=== PATIENT | female | born 1960 | race Caucasian/White ===

== ENCOUNTER → 2017-06-26 15:07 | Outpatient (CLI) | payer MEDICARE, SELFPAY | PROVIDERS: Visit Provider Nurse Practitioner Family | DX: R05 Cough (principal) | CPT/HCPCS: 87015; 87070; 87077; 87086; 87116; 87186; 87205; 87206; 87385 ==

== ENCOUNTER → 2017-11-24 11:50 | Outpatient (CLI) | payer MEDICARE, SELFPAY ==
--- NOTE | 2017-11-24 11:52 | CT_ITS ---
STUDY: LOW DOSE CT LUNG CANCER SCREENING REASON FOR EXAM: Female, 57 years old. COPD, LUNG SCREEN, SMOKED X 40 YRS-10 PER DAY RADIATION DOSAGE (If Supplied By Facility): CTDIvol = ( 3.02 ) mGy, DLP = ( 101.18 ) mGycm TECHNIQUE: No contrast was administered. Low dose technique was utilized (average mAS-38 and kVp 120). 1.25 mm axial source images with a slice interval of 1.25-mm were reconstructed in lung windows. 2.5 mm axial source images with a slice interval of 2.5-mm were reconstructed in lung windows. 5.0 mm axial source images with a slice interval of 5.0-mm were reconstructed in soft tissue windows. Nodule measured using lung windows on PACS and/or independent workstation with automated measurement of minimum and maximum diameter. Nodule measurement reported as average diameter rounded to the nearest whole number. Growth is defined as an increase ins size of greater than 1.5 mm. COMPARISON: None. NODULES: There is scarring distraction bronchiectasis in the left lung upper lobe. Mild subpleural emphysematous changes are noted in the left lower lobe and in the lung apices. There is no demonstrated pleural abnormality. Normal heart and pericardium. Normal mediastinum. Normal hilar regions. Normal unenhanced pulmonary arteries. Normal aorta arch and descending thoracic aorta. Normal osseous structures. There is no demonstrated abnormality of the visualized upper abdomen. CT/Low Dose CT Lung Screening IMPRESSION: Lung-RADS category 2. Benign findings. Recommendation: Routine screening CT scan in one year. IMPORTANT NOTES FOR USE: ACR Lung-RADS Version 1.0 Assessment Categories Release Date: June 03, 2013 Category: Coded 0-4 bases on nodule(s) with highest degree of suspicion. Negative screen is defined as categories 1 and 2; a positive screen is defined as categories 3 and 4. Category 3 and 4A nodules that are unchanged on interval CT should be coded as category 2, and individuals returned to screening in 12 months. Category 4X: Category 3 or 4 nodules with additional imaging findings that increase the suspicion of lung cancer, such as spiculation, GGN that doubles in size in 1 year, enlarged lymph notes, etc. Category Modifiers: S (significant finding unrelated to lung cancer) and C (prior history of treated lung cancer) may be added to the 0-4 Lung-RADS Electronically Signed: Aracelis Rivers MD at 7:55 EDT Tel , Service support ,
[2017-11-24 12:18] VITALS: PULSE 75; PULSE 77; PULSE 89; PULSE 90; PULSE 91; PULSE 97; O2SAT 94; O2SAT 95; O2SAT 96; O2SAT 97; O2SAT 98
--- NOTE | 2017-11-25 06:04 | PCM.PSN.6M ---
PSN 6 Minute Walk Test - 6 Minute Walk Test 6 Minute Walk Test: 6 Minute Walk Test PSN:6-Minute Walk Test Start: 11/24/17 12:18 Freq: Status: Active Protocol: [id number] Document 11/24/17 12:18 LOAN (Rec: 11/24/17 12:21 LOAN [id number]) 6 Minute Walk Test Date Performed 11/24/17 Time Performed 12:00 Height 5 ft 5 in Weight: 88.451 kg Weight in Pounds 195.[address]: Baudilio Rivera Assistive device used: None Pre-test Oxygen Delivery Method Room Air Pulse Ox (%) 98 Pulse Rate (60-100 beats/min) 75 Dyspnea Anderson Scale (0-10) 0 Exertion Anderson Scale (6-20) 6 1st minute Oxygen Delivery Method Room Air Pulse Ox (%) 97 Pulse Rate (60-100 beats/min) 90 2nd minute Oxygen Delivery Method Room Air Pulse Ox (%) 95 Pulse Rate (60-100 beats/min) 89 3rd minute Oxygen Delivery Method Room Air Pulse Ox (%) 95 Pulse Rate (60-100 beats/min) 90 4th minute Oxygen Delivery Method Room Air Pulse Ox (%) 96 Pulse Rate (60-100 beats/min) 97 5th minute Oxygen Delivery Method Room Air Pulse Ox (%) 94 Pulse Rate (60-100 beats/min) 90 6th minute Oxygen Delivery Method Room Air Pulse Ox (%) 94 Pulse Rate (60-100 beats/min) 91 Dyspnea Anderson Scale (0-10) 0.5 Exertion Anderson Scale (6-20) 11 Post-test Oxygen Delivery Method Room Air Pulse Ox (%) 98 Pulse Rate (60-100 beats/min) 77 Full Laps Walked 18 Partial Lap, Number of Tiles Walked 0 Total Distance Walked (ft) 1062 - Interpretation Interpretation: The patient was able to ambulate 1062 feet over the course of 6 minutes on room air with no assistive devices or breaks. There was no significant desaturation or tachycardia noted. These findings are consistent with a normal exercise oximetry. - Recommendations Recommendations: No supplemental oxygen is indicated at this time.
== END ==
PROVIDERS: Referring Provider Internal Medicine Critical Care Medicine; Visit Provider Internal Medicine Critical Care Medicine
DX: Z12.2 Encounter for screening for malignant neoplasm of respiratory organs (principal); J44.9 Chronic obstructive pulmonary disease, unspecified; Z87.891 Personal history of nicotine dependence
CPT/HCPCS: 94618; G0297

== ENCOUNTER → 2017-11-30 12:54 | Outpatient (CLI) | payer MEDICARE, SELFPAY ==
--- NOTE | 2017-12-01 12:23 | PFT ---
INTRODUCTION: The patient is a 57-year-old female that presents for pulmonary function testing secondary to a diagnosis of COPD. Respiratory therapy reports good patient effort. Bronchodilators were used during testing. INTERPRETATION: Forced expiration spirometry demonstrates the presence of a mild large airways obstructive ventilatory defect. There was no significant response to aerosolized bronchodilators. Spirograms are of fair quality and do not plateau indicating slow emptying of the lungs. Body plethysmography was performed and reveals lung volumes to be within normal limits. Diffusing capacity by single breath CO is mildly reduced at 67% of predicted. IMPRESSION: These pulmonary function studies demonstrate the presence of a mild large airways obstructive ventilatory defect with a symmetric reduction in diffusing capacity.
== END ==
PROVIDERS: Referring Provider Internal Medicine Critical Care Medicine; Visit Provider Internal Medicine Critical Care Medicine
DX: J44.9 Chronic obstructive pulmonary disease, unspecified (principal); F17.210 Nicotine dependence, cigarettes, uncomplicated
CPT/HCPCS: 94060; 94726; 94729

== ENCOUNTER → 2018-05-31 12:55 | Outpatient (CLI) | payer MEDICARE, SELFPAY ==
[2017-12-08 14:12] VITALS: BMI 32.4
--- NOTE | 2018-06-01 10:17 | PFT ---
INTRODUCTION: The patient is a 57-year-old female that presents for pulmonary function studies secondary to a diagnosis of COPD. Respiratory therapy reports good patient effort. Bronchodilators were used during testing. INTERPRETATION: Forced expiration spirometry demonstrates no evidence of a large airways obstructive ventilatory defect. There was no significant response to aerosolized bronchodilators. Spirograms are of suboptimal quality and terminate prior to 6 seconds, likely underestimating FVC. Body plethysmography was performed and reveals lung volumes to be within normal limits. Diffusing capacity by single breath CO is also within normal limits. IMPRESSION: Essentially normal pulmonary function studies.
== END ==
PROVIDERS: Referring Provider Nurse Practitioner Acute Care; Visit Provider Nurse Practitioner Acute Care
DX: J44.9 Chronic obstructive pulmonary disease, unspecified (principal)
CPT/HCPCS: 94060; 94726; 94729

== ENCOUNTER 2018-12-25 10:53 | Emergency (ER) | payer MEDICARE, SELFPAY ==
[2018-06-07 13:57] VITALS: BMI 31.1
[2018-12-25 10:55] VITALS: BP 100/55; PULSE 124; RESP 18; TEMP 36.8; O2SAT 94; BMI 28.3
--- NOTE | 2018-12-25 11:09 | RAD_ITS ---
STUDY: X-RAY CHEST REASON FOR EXAM: Female, 58 years old. Cough. COPD. TECHNIQUE: PA and lateral views of the chest. COMPARISON: None. FINDINGS: Minimal increased linear markings in the left upper lobe. This may represent mild scarring. Scattered calcified granulomas. There is no demonstrated pleural abnormality. Normal size heart. Normal mediastinum and mariya. Normal visualized pulmonary arteries. Normal visualized aortic arch and descending thoracic aorta. Normal visualized thoracic spine. Normal visualized ribs, clavicles, and shoulders. There is no demonstrated abnormality of the visualized soft tissue structures of the upper abdomen. RAD/Chest PA and Lateral IMPRESSION: No acute abnormality is seen. Electronically Signed: Jonathan Musa, at 12:31 EST , Service support ,
--- NOTE | 2018-12-25 11:10 | ED.VIS.GEN ---
History of Present Illness Chief Complaint: General Illness Informant: Patient Onset: Month(s) - 1 Narrative: Patient here with multiple complaints. He reported sinus congestion started a month ago, states when anterior chest for the past 2 weeks. Intermittent productive sputum. Over the last 3 days reports fever T-max of 101 taken orally. Took Advil prior to arrival. History of COPD with tobacco history. Reports wheezing. No chest pains. No significant short of breath. Patient will have posttussive headaches. States urine is darker over 3 days decreased oral intake. Mild cramping of the abdomen. No vomiting or diarrhea. No dysuria. Called PCP office and was referred to the ED. Reports had pneumonia 2 years ago. Denies history of diabetes. Prior similar symptoms: Yes Past Medical History - Allergies and Home Meds Allergies/Adverse Reactions: Allergies aspirin [From [employer] Aspirin] Allergy (Verified 12/25/18 10:55) Unknown codeine Allergy (Verified 12/25/18 10:55) Nausea/Vom/Diarrhea shellfish derived Allergy (Verified 12/25/18 10:55) Unknown talc Allergy (Verified 12/25/18 10:55) Itching Primary Care Physician: [facility] Winnie Valerio [Primary Care Provider] - Review of Systems General: Reports: Fever. Denies: Chills, Sweats Eyes: Denies: Visual changes - bilaterally, Diplopia ENT: Denies: Rhinorrhea, Sore throat Cardiovascular: Denies: Chest pain, Palpitations Respiratory: Reports: Cough, Sputum. Denies: Dyspnea, Dyspnea on exertion Gastrointestinal: Denies: Abdominal pain, Nausea, Vomiting, Diarrhea, Melena, Hematochezia Genitourinary: Denies: Dysuria, Hematuria, Frequency Musculoskeletal: Denies: Back pain, Extremity Pain Skin: Denies: Rash, Wounds Neurological: Denies: Headache, Weakness, Numbness Physical Exam Vital Signs/Narrative: Vital Signs Temp Pulse Resp BP Pulse Ox 12/25/18 10:55 98.2 F 124 H 18 100/55 L 94 Inital Vital Signs reviewed: Yes General: Well nourished, Well developed, No Acute Distress Head: Normocephalic, Atraumatic Eyes: Perrl, EOMI ENT: No rhinorrhea, - - Mild dry mucosal membranes. Neck: Supple, Nontender Cardiovascular: Regular rate, Regular rhythm, No murmurs, - - Heart rate 96 on my evaluation. Respiratory: No distress, Chest nontender, - - Mild expiratory wheezing bilateral bases Abdomen: Soft, Nontender, Nondistended, Normal bowel sounds, - - Negative McBurney's tenderness.. Negative for: Ortiz's sign Back: Nontender, Normal Inspection. Negative for: CVA tenderness Extremities: Nontender, No edema Skin: Normal color, No rash Neurological: Alert, Oriented x3, Cranial nerves II-XII grossly intact, Normal Strength, Normal Sensation Psychological: Normal affect, Normal Mood Diagnostic/Tx/Re-eval Clinical Impression(s) from Imaging Studies Chest X-Ray 12/25/18 11:09 IMPRESSION: No acute abnormality is seen. Electronically Signed: Jonathan Lencho, at 12:31 EST , Service support , Abnormal Lab Results 12/25/18 12/25/18 12/25/18 11:28 11:30 11:30 WBC 13.9 H RBC 4.64 Hgb 14.8 Hct 44.6 MCV 96.1 MCH 31.9 MCHC 33.2 RDW Std Deviation 45.8 H RDW Coeff of Ramila 12.8 Plt Count 158 MPV 11.7 Immature Gran % (Auto) 0.400 Neut % (Auto) 82.3 H Lymph % (Auto) 6.8 L [place] % (Auto) 9.4 Eos % (Auto) 0.8 Baso % (Auto) 0.3 Absolute Neuts (auto) 11.5 H Absolute Lymphs (auto) 0.94 Nucleated RBC % 0 Sodium 136 Potassium 3.8 Chloride 104 Carbon Dioxide 25.0 Anion Gap 7 BUN 14 Creatinine 1.11 H Estim Creat Clear Calc 50.92 Est GFR (MDRD) Af Amer 65 Est GFR (MDRD) Non-Af 54 L BUN/Creatinine Ratio 12.6 Glucose 140 H Calcium 9.0 Urine Color Amelia Urine Clarity Sl. Cloudy Urine pH 5.0 Ur Specific [place] 1.025 Urine Protein 100 H Urine Glucose (UA) Normal Urine Ketones 15 H Urine Occult Blood 250 H Urine Nitrite Positive H Urine Bilirubin 1 H Urine Urobilinogen 1 H Ur Leukocyte Esterase 500 H Urine RBC 25-50 SEEN Urine WBC 25-50 SEEN Ur Squamous Epith Cells 0-5 SEEN Urine Bacteria 2+ Urine Mucus 1+ - Medical Decision Making Patient nontoxic, heart rate was regular and normal on my exam. She had wheezing that improved with aerosols. She started on steroids. History of COPD chest x-ray negative labs noted white count 13.9, her urine was positive for infection. Renal function normal. Patient ambulated oxygen dropped to 91 however not lower and improved with rest. She will be treated with her COPD exacerbation and her UTI with Augmentin. Steroids for additional 4 more days, refill of her inhaler. Signs and symptoms discussed return otherwise follow-up as an outpatient. All questions were answered. ED Disposition - Plan for ED Patient: Disposition: Home or Assisted Living Diagnosis: COPD exacerbation, UTI (urinary tract infection) Instructions: Treatments for COPD, Understanding Urinary Tract Infections (UTIs) Prescriptions: Amox/Clavulanate Tablet [Augmentin Tablet] 875 mg PO Q12H #20 tablet Prednisone [Deltasone] 60 mg PO DAILY #12 tablet Albuterol Inhaler [Ventolin Hfa] 1 - 2 puff INHALATION Q4H PRN PRN #1 inhaler PRN Reason: Wheezing Referrals: [facility]Winnie Heard [Primary Care Provider] - 3-5 Days if not improving
[2018-12-25 11:13] VITALS: BP 100/55; PULSE 124; RESP 18; TEMP 36.8; O2SAT 94
[2018-12-25] MEDS: Albuterol 2.5 MG/3 ML VIAL.NEB. INHALATION ×2 (11:23)
[2018-12-25] MEDS: predniSONE 20 MG Tablet 60 MG PO (11:23)
[2018-12-25 11:25] VITALS: PULSE 94; RESP 21; O2SAT 90
[2018-12-25] MEDS: 0.9% Normal Saline 1,000 ML 1000 ML IV (11:30)
[2018-12-25 11:43] LABS: Absolute Lymphocyte Count 0.94 X10^3/uL (0.83-4.51); Absolute Neutrophil Count 11.5 X10^3/uL (2.0-7.7); Basophil# 0.04 X10^3/uL; Basophil% 0.3 % (0-1); Eosinophil# 0.11 X10^3/uL; Eosinophils% 0.8 % (0-5); Hematocrit 44.6 % (37-47); Hemoglobin 14.8 g/dL (12.0-15.0); Lymphocyte # 0.94 X10^3/ul (4.0); Lymphocyte % 6.8 % (19-41); Mean Corp Hgb Conc 33.2 g/dL (32-36); Mean Corpuscular Hgb 31.9 pg (27.0-32.0); Mean Corpuscular Volume 96.1 fL (81-99); Mean Platelet Vol. 11.7 fl (6.2-12.0); Monocyte# 1.31 X10^3/uL; Monocyte% 9.4 % (0-10); NRBC Flagged by Analyzer 0 % (0-5); Neutrophil # 11.45 X10^3/uL (2.7-7.7); Neutrophil % 82.3 % (47-70); Platelet Count 158 K/mm3 (150-450); RBC Distribution Width CV 12.8 % (11.6-14.6); RBC Distribution Width SD 45.8 fl (35.1-43.9); Red Blood Count 4.64 M/mm3 (4.2-5.4); White Blood Count 13.9 K/mm3 (4.4-11.0)
[2018-12-25 11:55] LABS: Anion Gap 7 (5-15); BUN 14 mg/dL (7-18); BUN/Creat Ratio 12.6 RATIO (10-20); Chloride 104 mmol/L (98-107); Creatinine, Serum 1.11 mg/dL (0.55-1.02); EST Glomerular Filtration Rate 54 mL/min (>60); Est Glom Filt Rate - Afr Amer 65 mL/min (>60); Estimated Creatinine Clearance 50.92 ml/min; Glucose 140 mg/dL (74-106); Potassium 3.8 mmol/L (3.5-5.1); Sodium Level 136 mmol/L (136-145)
[2018-12-25 11:56] LABS: Color, Urine Amber (Yellow); Glucose, Dipstick Normal (Normal); Ketone-Dipstick 15 mg/dl (Negative); Leukocyte Esterase-Dipstick 500 /ul (Negative); Nitrite-Dipstick Positive (Negative); Occult Blood-Urine 250 /ul (Negative); Protein-Dipstick 100 mg/dl (Negative); Specific Gravity, Urine 1.025 (1.002-1.030); Urine Clarity Sl. Cloudy (Clear); Urine Urobilinogen 1 mg/dl (Normal)
[2018-12-25 11:57] LABS: Urine Bilirubin Dipstick 1 mg/dL (Negative)
[2018-12-25 12:00] VITALS: BP 103/75; PULSE 92; RESP 18; TEMP 36.8; O2SAT 94
[2018-12-25 12:04] LABS: Bacteria 2+ /hpf (None Seen); Mucous, Urine 1+ /hpf (<or=2+); Red Blood Cells-Urine 25-50 SEEN /hpf (0-5); Squamous Epithelial Cells - UA 0-5 SEEN /hpf (5-10); White Blood Cells 25-50 SEEN /hpf (0-5)
[2018-12-25 13:17] VITALS: O2SAT 95
[2018-12-25 13:18] VITALS: BP 104/63; PULSE 95; RESP 18; O2SAT 94
[2018-12-25] MEDS: Amox/Clavulanate 875 MG Tablet PO (13:38)
== END 2018-12-25 14:25 | disposition home or self-care (01) ==
PROVIDERS: Emergency Provider Emergency Medicine
DX: J44.1 Chronic obstructive pulmonary disease with (acute) exacerbation (principal); N39.0 Urinary tract infection, site not specified; F17.200 Nicotine dependence, unspecified, uncomplicated
CPT/HCPCS: 71046; 80048; 81001; 85025; 87086; 87088; 87186; 94640; 99251; 99283; A4216; G0463

== ENCOUNTER 2019-04-29 11:39 | Emergency (ER) | payer MEDICARE, SELFPAY ==
[2019-04-29 11:40] VITALS: BP 163/88; PULSE 99; RESP 18; TEMP 37; O2SAT 97; BMI 25.7
--- NOTE | 2019-04-29 12:40 | CT_ITS ---
STUDY: CT ABDOMEN AND PELVIS WITH CONTRAST REASON FOR EXAM: Female, 58 years old. Nausea, vomiting, sore throat, COPD, hx ETOH use. RADIATION DOSAGE (If Supplied By Facility): CTDIvol = ( 12.60 ) mGy, DLP = ( 588.73 ) mGycm TECHNIQUE: Transaxial images were obtained from the dome of the diaphragm to the symphysis pubis with oral contrast. Oral and amp; IV Gastrografin and amp; 100mL Isovue-300 was administered. Sagittal and coronal images were reconstructed. Individualized dose optimization techniques were used for this CT. COMPARISON: None. FINDINGS: Minimal linear atelectasis and/or scarring at the right lung base. The visualized portions of the heart are within normal limits. Normal liver. Normal gallbladder and extrahepatic biliary system. Normal spleen. Normal pancreas. Normal bilateral adrenal glands. Normal right kidney. Normal left kidney. There is a small hiatal hernia. Normal small intestine. Normal colon. The appendix is visualized and appears normal. There is scattered atherosclerotic calcification of the abdominal aorta, without a demonstrated aneurysm. Plaque formation is seen at the origin of the right renal artery. Normal inferior vena cava. There is borderline retroperitoneal lymphadenopathy with enlarged nodes no greater than 10mm in the short axis diameter. Normal urinary bladder. There is a small umbilical hernia containing fat. Moderate degree of disc space narrowing with spondylosis and subchondral sclerosis at the L4-L5 level. CT/Abdomen/Pelvis WITH Contrast IMPRESSION: No acute abnormality is seen. Electronically Signed: Jonathan Musa, at 15:23 EDT , Service support ,
--- NOTE | 2019-04-29 12:42 | ED.DCSUM_ITS ---
History of Present Illness Chief Complaint: Abd Pain Informant: Patient Onset: Month(s) Narrative: Patient presents to ED for evaluation of upper and lower abdominal pain been going on for many months.. She is feels bloating. She states she is highly concerned of cancer and feels that there is cancer. Tobacco history. More serous hoarseness of her voice. Denies fever. Nausea and vomiting yesterday today nauseated. No diarrhea. No urinary symptoms. History of hysterectomy. Colonoscopy 3 to 4 years ago that was negative. States she wants to be DNR comfort care only no matter what we find stating I am ready to go. Prior similar symptoms: Yes Past Medical History - Allergies and Home Meds Allergies/Adverse Reactions: Allergies aspirin [From [place] Aspirin] Allergy (Verified 04/29/19 11:39) Unknown codeine Allergy (Verified 04/29/19 11:39) Nausea/Vom/Diarrhea lavender (Lavandula angustifolia) Allergy (Verified 04/29/19 11:39) Rash shellfish derived Allergy (Verified 04/29/19 11:39) Unknown talc Allergy (Verified 04/29/19 11:39) Itching Primary Care Physician: [facility] Winnie Valerio [Primary Care Provider] - Past Medical History: - - Anxiety, COPD, IBS, hyperlipidemia, fibromyalgia Surgical History: hysterectomy Smoking Status: Current every day smoker Review of Systems General: Denies: Chills, Fever, Sweats Eyes: Denies: Visual changes - bilaterally, Diplopia ENT: Denies: Rhinorrhea, Sore throat Cardiovascular: Denies: Chest pain, Palpitations Respiratory: Denies: Dyspnea, Cough, Dyspnea on exertion Gastrointestinal: Reports: Abdominal pain, Nausea, Vomiting. Denies: Diarrhea, Melena, Hematochezia Genitourinary: Denies: Dysuria, Hematuria, Frequency Musculoskeletal: Denies: Back pain, Extremity Pain Skin: Denies: Rash, Wounds Neurological: Denies: Headache, Weakness, Numbness Physical Exam Vital Signs/Narrative: Vital Signs Temp Pulse Resp BP Pulse Ox 04/29/19 11:40 98.6 F 99 18 163/88 H 97 Inital Vital Signs reviewed: Yes General: Well nourished, Well developed, No Acute Distress Head: Normocephalic, Atraumatic Eyes: Perrl, EOMI ENT: Moist mucous membranes, No rhinorrhea Neck: Supple, Nontender Cardiovascular: Regular rate, Regular rhythm, No murmurs Respiratory: No distress, CTA bilaterally, Chest nontender Abdomen: Soft, Nondistended, Normal bowel sounds, - - Mild generalized tenderness without rebound or guarding. Back: Nontender, Normal Inspection Extremities: Nontender, No edema Skin: Normal color, No rash Neurological: Alert, Oriented x3, Cranial nerves II-XII grossly intact, Normal Strength, Normal Sensation Psychological: Normal affect, Normal Mood Diagnostic/Tx/Re-eval Clinical Impression(s) from Imaging Studies Abdomen/Pelvis CT 04/29/19 12:40 IMPRESSION: No acute abnormality is seen. Electronically Signed: Jonathan Musa, at 15:23 EDT , Service support , Abnormal Lab Results 04/29/19 04/29/19 04/29/19 13:10 13:10 13:10 WBC 8.5 RBC 4.73 Hgb 14.7 Hct 45.7 MCV 96.6 MCH 31.1 MCHC 32.2 RDW Std Deviation 47.7 H RDW Coeff of Ramila 13.2 Plt Count 243 MPV 11.5 Immature Gran % (Auto) 0.200 Neut % (Auto) 67.7 Lymph % (Auto) 24.6 [place] % (Auto) 6.0 Eos % (Auto) 1.3 Baso % (Auto) 0.2 Absolute Neuts (auto) 5.8 Absolute Lymphs (auto) 2.10 Nucleated RBC % 0 Sodium 143 Potassium 3.8 Chloride 105 Carbon Dioxide 30.0 Anion Gap 8 BUN 4 L Creatinine 0.88 Estim Creat Clear Calc 64.23 Est GFR (MDRD) Af Amer 85 Est GFR (MDRD) Non-Af 70 BUN/Creatinine Ratio 4.5 L Glucose 101 Calcium 9.3 Total Bilirubin 0.50 Direct Bilirubin 0.11 AST 26 ALT 35 Alkaline Phosphatase 79 Total Protein 7.6 Albumin 4.2 Globulin 3.4 Lipase 78 Urine Color Straw Urine Clarity Clear Urine pH 7.0 Ur Specific [place] 1.005 Urine Protein Negative Urine Glucose (UA) Normal Urine Ketones Negative Urine Occult Blood Negative Urine Nitrite Negative Urine Bilirubin Negative Urine Urobilinogen Normal Ur Leukocyte Esterase Negative Urine RBC 0 SEEN Urine WBC 0 SEEN Ur Squamous Epith Cells 0 SEEN Urine Bacteria 0 SEEN Urine Mucus 0 SEEN - Medical Decision Making Patient has a nonsurgical abdomen. She reports bloating increasing pain for months and has concerns for cancer. Work-up initiated abdominal labs urine all negative. Contrast CT obtained also negative. Patient is reassured, with her bloating reporting symptoms worsen with food concern for gastritis denies any GI bleed symptoms. Given GI cocktail in ED. Will place on Carafate and omeprazole. In addition planes of hoarse voice with tobacco history, should be given follow-up with ENT for further testing. She states she would like to know if there is any abnormalities. In addition, she was requesting to have a DNR comfort care status only. She is alert and oriented x3 and capable of making decisions, she used to be an RN. Detailed discussion on DNR status, discussion for 15 minutes she would not want central line, pressors, intubation, CPR or defibrillation. She states she would like antibiotics however if needed. DNR papers were filled out and signed in the emergency department with copies given to the paper it. Discharge with outpatient follow-up. OAARS report checked. ED Disposition - Plan for ED Patient: Disposition: Home or Assisted Living Diagnosis: Abdominal pain, Gastritis, Hoarseness of voice, DNR (do not resuscitate) Instructions: ABDOMINAL PAIN, Unknown Cause, (Female), GASTRITIS vs. ULCER Prescriptions: Sucralfate [Carafate] 1 gm PO 4X/DAY #60 tab Transmission Status: Pending to [facility] Hydrocodone Bitart/Apap 5-325 [[place] 5MG-325MG] 1 tablet PO Q6H PRN PRN 3 Days #12 tablet PRN Reason: Pain Transmission Status: Sent to [facility] Omeprazole 40 mg PO DAILY #30 capsule. Transmission Status: Pending to [facility] Referrals: [facility],Winnie Heard [Primary Care Provider] - 3-5 Days Geovanni Marley MD [STAFF PHYSICIAN] - 5-7 Days Additional Instructions: Follow-up with Dr. Marley for evaluation of your hoarse voice due to tobacco history
[2019-04-29] MEDS: Ondansetron 4 MG/2 ML Vial IV (13:07)
[2019-04-29] MEDS: 0.9% Normal Saline 1,000 ML 150 ML IV (13:08)
[2019-04-29] MEDS: Morphine 4 MG/ML Syringe IV (13:08)
[2019-04-29 13:25] LABS: Bacteria 0 SEEN /hpf (None Seen); Mucous, Urine 0 SEEN /hpf (<or=2+); Red Blood Cells-Urine 0 SEEN /hpf (0-5); Squamous Epithelial Cells - UA 0 SEEN /hpf (5-10); White Blood Cells 0 SEEN /hpf (0-5)
[2019-04-29 13:28] LABS: Color, Urine Straw (Yellow); Glucose, Dipstick Normal (Normal); Ketone-Dipstick Negative (Negative); Leukocyte Esterase-Dipstick Negative /ul (Negative); Nitrite-Dipstick Negative (Negative); Occult Blood-Urine Negative /ul (Negative); Protein-Dipstick Negative (Negative); Specific Gravity, Urine 1.005 (1.002-1.030); Urine Bilirubin Dipstick Negative (Negative); Urine Clarity Clear (Clear); Urine Urobilinogen Normal (Normal)
[2019-04-29 13:29] LABS: Absolute Neutrophil Count 5.8 X10^3/uL (2.0-7.7); Basophil# 0.02 X10^3/uL; Basophil% 0.2 % (0-1); Eosinophil# 0.11 X10^3/uL; Eosinophils% 1.3 % (0-5); Hematocrit 45.7 % (37-47); Hemoglobin 14.7 g/dL (12.0-15.0); Lymphocyte % 24.6 % (19-41); Mean Corp Hgb Conc 32.2 g/dL (32-36); Mean Corpuscular Hgb 31.1 pg (27.0-32.0); Mean Corpuscular Volume 96.6 fL (81-99); Mean Platelet Vol. 11.5 fl (6.2-12.0); Monocyte# 0.51 X10^3/uL; NRBC Flagged by Analyzer 0 % (0-5); Neutrophil # 5.77 X10^3/uL (2.7-7.7); Neutrophil % 67.7 % (47-70); Platelet Count 243 K/mm3 (150-450); RBC Distribution Width CV 13.2 % (11.6-14.6); RBC Distribution Width SD 47.7 fl (35.1-43.9); Red Blood Count 4.73 M/mm3 (4.2-5.4); White Blood Count 8.5 K/mm3 (4.4-11.0)
[2019-04-29 14:05] LABS: AST(SGOT) 26 U/L (15-37); Alanine Aminotransfer ALT/SGPT 35 U/L (13-56); Albumin, Serum 4.2 g/dL (3.2-5.0); Alkaline Phosphatase 79 U/L (45-117); Anion Gap 8 (5-15); BUN 4 mg/dL (7-18); BUN/Creat Ratio 4.5 RATIO (10-20); Bilirubin, Direct 0.11 mg/dL (0.00-0.30); Calcium,Total 9.3 mg/dL (8.5-10.1); Chloride 105 mmol/L (98-107); Creatinine, Serum 0.88 mg/dL (0.55-1.02); EST Glomerular Filtration Rate 70 mL/min (>60); Est Glom Filt Rate - Afr Amer 85 mL/min (>60); Estimated Creatinine Clearance 64.23 ml/min; Globulin 3.4 g/dL (2.2-4.2); Glucose 101 mg/dL (74-106); Lipase 78 U/L (73-393); Potassium 3.8 mmol/L (3.5-5.1); Protein, Total 7.6 g/dL (6.4-8.2); Sodium Level 143 mmol/L (136-145)
[2019-04-29] MEDS: Mag Hydrox/Al Hydrox/Simeth 30 ML UDC PO (16:14)
[2019-04-29 16:18] VITALS: BP 122/83; PULSE 81; RESP 18; O2SAT 97
== END 2019-04-29 16:23 | disposition home or self-care (01) ==
PROVIDERS: Emergency Provider Emergency Medicine
DX: R10.9 Unspecified abdominal pain (principal); K29.70 Gastritis, unspecified, without bleeding; R49.0 Dysphonia; F17.200 Nicotine dependence, unspecified, uncomplicated; Z66 Do not resuscitate
CPT/HCPCS: 74177; 80048; 80076; 81001; 83690; 85025; 96361; 96374; 96375; 99284; J7030; Q9967; J2405

== ENCOUNTER 2019-06-26 08:16 | Day surgery (SDC) | payer MEDICARE, SELFPAY ==
[2019-06-13 13:54] VITALS: BMI 25.7
[2019-06-26 08:36] VITALS: BP 119/62; PULSE 78; RESP 15; TEMP 36.4; O2SAT 96; BMI 25.1
[2019-06-26] MEDS: Lactated Ringers 1,000 ML 100 ML IV (08:42)
--- NOTE | 2019-06-26 08:45 | HP.PCM_ITS ---
History of Present Illness Date of Admission: 06/26/19 The patient is a 58 year old F previously underwent an visit to the office. Due to reflux, nausea, early satiety/bloating. Patient did have some abdominal pain and went to the ER in April she was placed on omeprazole and Carafate and followed up with her PCP she did have some left upper quadrant stabbing abdominal pain at that time currently denies any abdominal pain. However she does still have some bloating/increased gas nausea and feeling full; however the early satiety had improved with medication as well. She states she gets burning in her esophagus about once every 2 weeks with omeprazole 40 mg p.o. daily she does try to take her Carafate 4 times daily does not always remember the 4 times. Patient states she has had a colonoscopy in 2016 which was normal never had any previous EGD. However patient does state that she has had previous ulcers in the past and avoids citrus or acidic foods they seem to make her symptoms worse. Also had a history of lactose intolerant/IBS per patient. Patient would also like a celiac biopsy during procedure. Past Medical/Surgical History - Planned Operation Planned Operative Procedure/s: egd Date of Operative Procedure: 06/26/19 Permit Signed: No S.O.S: No Is This Patient Having a Total Joint: No - Previous Hospitalizations/Surgeries HX Hospitalizations: Yes - pneumonia/flu 2-3 yrs ago HX of Surgeries: tonsillectomy as child. laparoscopy. hysterectomy. cscope several Any Problems With Anesthesia: No You/Your Family Experience Fever (Hyperthermia) With Anes: No Cholinesterase deficiency: No - Cardiovascular Hx Chest Pain within Last 2 months: No Hx of Irregular Heartbeat and/or Afib: No - flutter at times Hx Heart Attack: No Hx Congestive Heart Failure: No Hx Rheumatic Fever: No Hx Hypertension: No Hx Internal Defibrillator: No Hx Pacemaker: No Hx Cardiac Catheterization: No Hx Cardiac Surgery/Stents/Etc.: No Hx Stress Test: Yes - jeremias unsure when HX Edema: No Hx Pain in Legs when Walking/Leg Cramps: Yes - occ pain - Respiratory Chronic Cough: No HX of Shortness of Breath: Yes - sob with 2 flights of stairs Hoarseness: Yes Hx Chronic Obstructive Pulmonary Disease (COPD): Yes Hx Asthma: No Hx Emphysema: No Hx Sleep Apnea: No Hx Oxygen Use at Home: No Hx Respiratory Tract Infection/Cold (presently): No Do You Snore Loudly (louder than talking or can be heard): No Do You Often Feel Tired/ Fatigued/ Sleepy Dring Daytime?: Yes Has Anyone Observed You Stop Breathing During Sleep?: No Result (for STOP score): Negative Hx Smoking: Yes - 1ppd for 40+ yrs Smoking Status: Current every day smoker - Gastrointestinal Hx Gastroesophageal Reflux: Yes Controlled With Meds: Yes - continues with stomach pain Hx Gastrointestinal Disorders: Yes - ibs Hx Gastrointestinal Bleed: No Hx Ulcer: Yes - in the past Hx Hiatal Hernia: No Difficulty Chewing/Swallowing: Yes - troubles with swallowing at times Recent Onset of Swallowing Problems: No Special diet followed at home: Yes - lactose intolerance Hx Unplanned Weight Loss of 20#: No HX Unplanned Weight Gain of 20#: No - Neurological Hx Seizures: Yes - stress/anxiety related seizure 2 months ago/no meds/no neurologist HX Syncope/Blackout Spells/Unconsciousness: Yes - syncope at times Hx CVA/Stroke: No Hx Transient Ischemic Attacks (TIA): No Hx Multiple Sclerosis: No Hx Parkinson's Disease: No Hx Head/Neck Injury: No Hx Headaches: Yes - occ Hx Back Injury/Pain: Yes - chronic back pain Recent Onset of Speech Difficulty: No Restless Legs: No Does patient have nerve stimulator: No Patient instructed to have device shut off: No Rep notified?: No - Blood Disorder Hx Leukemia: No Bleeding Tendencies: Yes - bruises easily Hx Deep Vein Thrombosis: No Hx High Cholesterol: No Blood Transmitted Disease: No Hx Hepatitis: No Hx Cirrhosis: No Hx Anemia: No Hx Blood Disorders: No - Reproduction : No Is Patient Lactating: No Hx Hysterectomy: Yes Hx Tubal Ligation: No Are You Post Menopause: Yes - Genitourinary Hx Renal Disease: No - Musculoskeletal Hx Arthritis: Yes Hx Rheumatoid Arthritis: No Hx Gout: No Recent Onset of an Orthopedic Problem: No - Endocrine Hx Diabetes: No Thyroid Disease: No Hx Steroid Therapy: No - Psycho/Social Hx Substance Use: Yes - cbd oil prn Hx Alcohol Use: Yes - alcoholic, last drink was in december Hx Anxiety: Yes - on med Hx Depression: Yes - on med Mental Illness: Yes - ptsd/ocd Hx Dementia: No - Miscellaneous Hx Cancer: No Recent Exposure to Contagious Disease: No Active MRSA: No Hx of C-Diff: No Any Loose Teeth: No Allergies aspirin [From [facility] Aspirin] Allergy (Verified 06/26/19 08:33) Unknown codeine Allergy (Verified 06/26/19 08:33) Nausea/Vom/Diarrhea lavender (Lavandula angustifolia) Allergy (Verified 06/26/19 08:33) Rash shellfish derived Allergy (Verified 06/26/19 08:33) Unknown talc Allergy (Verified 06/26/19 08:33) Itching - Discharge Is Pt Admitted From a Usp, or a Snf: No Who Could Help: family After D/C, Where Do you Plan to Go: Return Home - Physical Exam Vitals/I&O's: Vital Signs Temp Pulse Resp BP Pulse Ox 97.5 F L 78 15 119/62 96 06/26/19 08:36 06/26/19 08:36 06/26/19 08:36 06/26/19 08:36 06/26/19 08:36 Oxygen Delivery Method Room Air Weight: 151 lb 3.794 oz Body Mass Index (BMI) 25.1 General: Alert, Oriented x3, Cooperative, No apparent distress HEENT: Atraumatic Lungs: Normal air movement Cardiovascular: Regular rate Abdomen: Soft, Non Tender, Non-Distended Extremities: No clubbing, No cyanosis, No edema Neurological: Cranial nerves II-XII grossly intact Psych/Mental Status: Normal Affect Microbiology Past 72 Hours 06/25/19 12:26 Mucosa - Nasopharyngeal Coronavirus COVID-19 PCR - Final Laboratory Results 06/25/19 12:26: COVID-19 (YANIRA) Cancelled Current Medications Lactated Ringer's () 1,000 mls @ 100 mls/hr IV .Q10H [facility] Assessment/Plan All Active Problems (Last Reviewed 06/07/18 @ 13:58 by Janis Nixon) PND (post-nasal drip) (Acute) Bronchiectasis (Acute) History of hysterectomy (Resolved) Suicide attempt (Resolved) Nervous breakdown (Resolved) History of tonsillectomy (Resolved) Ulcer (Acute) Menstrual problem (Acute) Sexual problems (Acute) Irregular heart beat (Acute) Eye pain (Acute) Headache (Acute) History of ovarian cyst (Resolved) Red blood cell disorder (Acute) Macrocytosis (Acute) Urethritis (Acute) 58-year-old female with GERD, bloating, early satiety, nausea Surgery Risks - Colonoscopy I discussed with the patient the risks of the procedure: Yes Risks Include but are not Limited To: Risks include but are not limited to: Bleeding, perforation requiring further surgery, inability to complete colonoscopy requiring barium enema. Patient and her had no further questions this time. We discussed the current risks associated with COVID-19. While it is understood that there is a community spread of COVID-19, the risk of rani COVID-19 while at [facility] ([facility]) is very low; however, the risk cannot be completely mitigated because of the community spread of the disease. We discussed in detail the risk of exposure to and/or potential harm posed by the COVID-19 virus with having a surgery/procedure at this time versus the risk of delaying the surgery/procedure. It is not possible to know either the risk of delaying the surgery or procedure or chance of getting an infection with perfect accuracy, but a joint decision was made to proceed at this time with the scheduled surgery/procedure as indicated on the consent form. Patient was notified that we will need to comply with any screening or testing [facility] wishes to perform or that surgery may be delayed for any positive results.
--- NOTE | 2019-06-26 09:00 | EGD_PTH ---
PATIENT: JAYNE ARREDONDO LOC: [facility] U#:[id number] AGE/SX: 58/F ROOM: RE06/26/[address]: Dr. Rohini Garcia MD : 1960 BED: DIS: 06/26/2019 SPEC #: [id number] RECD: 06/26/19 13:00 STATUS: JIAN DYLAN #: [id number] ANNABEL: 06/26/19 09:[address]: Rohini Garcia DEPT: SURGICAL PATHOLOGY RECD BY: Beck Padilla ENTERED: 06/27/19 09:08 SP TYPE: EGD BIOPSY JONATHAN DR: Angelina Xie, INVESTIGATION CLERK-C [facility] Tissues: A - BOWEL BIOPSY B - Gastric mucous membrane C - Gastric mucous membrane Procedures: Special Stain Group II Surgery Specimen Level IV Alcian Blue/PAS (control) HEADER OPERATION: EGD ([facility]) PRE-OP DIAGNOSIS: GERD, bloating, nausea TISSUE SUBMITTED: A - Small bowel biopsy, rule out celiac, B - Antral biopsy for H. pylori and pathology, C - GE junction biopsy MICROSCOPIC DIAGNOSIS A. Small bowel biopsy: A fragment of duodenal mucosa, no pathologic diagnosis. B. Antral biopsy: Mild gastritis. See microscopic description and comment. C. GE junction, biopsy: A fragment of gastroesophageal mucosa with mild chronic inflammation. Intestinal metaplasia (goblet cell metaplasia) is not identified. See comment. SJ:ifeoma 06/28/19 COMMENT B. The results of immunohistochemistry for Helicobacter pylori will be reported separately ([id number]). C. Alcian blue/PAS stain with matched control is used in the evaluation of the specimen. MICROSCOPIC DESCRIPTION Slides are reviewed. B. The specimen shows fragments of gastric mucosa with chronic inflammatory cell infiltrates in the lamina propria consisting of lymphocytes and plasma cells, consistent with mild chronic gastritis. GROSS DESCRIPTION A - Received in fixative is one container labeled with the patient's name and designated small bowel biopsy. The specimen consists of one irregular fragment of light villeda soft tissue that measures 0.3 x 0.3 x 0.1 cm. The specimen is totally submitted in one cassette. B - Received in fixative is one container labeled with the patient's name and designated antral biopsy. The specimen consists of one irregular fragment of light villeda soft tissue that measures 0.3 x 0.3 x 0.1 cm. The specimen is totally submitted in one cassette. C - Received in fixative is one container labeled with the patient's name and designated GE junction biopsy. The specimen consists of one irregular fragment of light villeda soft tissue that measures 0.3 x 0.2 x 0.1 cm. The specimen is totally submitted in one cassette. / SJ:rg 06/27/19 TC:5 CPT: 43976 x3, 50710
--- NOTE | 2019-06-26 09:00 | IMM_PTH ---
PATIENT: JAYNE ARREDONDO LOC: [facility] U#:[id number] AGE/SX: 58/F ROOM: RE06/26/[address]: Dr. Rohini Garcia MD : 1960 BED: DIS: 06/26/2019 SPEC #: [id number] RECD: 06/27/19 09:12 STATUS: JIAN REQ #: [id number] ANNAEBL: 06/26/19 09:[address]: Rohini Garcia DEPT: IMMUNOHISTOCHEMISTRY RECD BY: Whit Spears ENTERED: 06/27/19 09:12 SP TYPE: IMMUNO OTHR DR: Angelina Xie, EDUCATIONAL PSYCHOLOGIST-C [facility] Tissues: B - Stomach, NOS Procedures: H Pylori (initial) PHYSICIAN & INSTITUTION [place] [address] SPECIMEN INFORMATION: Tissue Source: B - Antral biopsy Clinical Info: GERD, bloating, nausea Specimen Number: [id number] CPT code: 96287 METHODOLOGY: Deparaffinized sections of prefer/formalin-fixed tissue or PAP/DQ stained slides are incubated with monoclonal/polyclonal antibodies/oligonucleotide probes. Localization is made via biotin free immunoperoxidase method. Appropriate controls are performed and reacted as expected. Results on target cell population are indicated in the following table: RESULTS: ANTIBODY / CLONE RESULT Block B H Pylori (polyclonal) negative These tests were developed and their performance characteristics determined by [facility]. They may not have been cleared or approved by the U.S. Food and Drug Administration. The FDA has determined that such clearance or approval is not necessary. INTERPRETATION: B. Antral biopsy: Negative for Helicobacter pylori organisms. SJ:ifeoma 06/28/19
[2019-06-26 09:21] VITALS: BP 103/66; BP 119/62; PULSE 73; RESP 16; TEMP 36.5; O2SAT 99
[2019-06-26 09:25] VITALS: BP 101/69; BP 119/62; PULSE 74; RESP 16; O2SAT 99
[2019-06-26 09:30] VITALS: BP 112/65; BP 119/62; PULSE 72; RESP 16; O2SAT 99
[2019-06-26 09:35] VITALS: BP 107/69; BP 119/62; PULSE 75; RESP 16; TEMP 37.2; O2SAT 97
[2019-06-26 10:01] VITALS: BP 119/62
--- NOTE | 2019-07-02 09:26 | OP.CCLET_ITS ---
07/02/2019 [facility] Re : Upper GI endoscopy procedure for Ann Marie [facility] This procedure was performed on Wednesday, June 26, 2019. My impressions and recommendations are as follows: Impressions : - Z-line variable, 40 cm from the incisors. Biopsied. - A medium amount of a phytobezoar in the stomach. - Erythematous mucosa in the antrum. Biopsied. - No gross lesions in the duodenal bulb, in the first portion of the duodenum and in the second portion of the duodenum. Biopsied. Recommendations : - Await pathology results. - Discharge patient to home. - Gastroparesis diet. - Continue present medications. - Use Protonix (pantoprazole) 40 mg PO daily. My findings are described in the full procedure note, which is enclosed. If I can be of further assistance, please feel free to contact me at Doctor phone number(s): , Work: . Sincerely, MD Rohini Horton MD 06/26/2019 9:21:26 AM This report has been signed electronically.
--- NOTE | 2019-07-02 09:26 | OP.EGD_ITS ---
Patient Name: Ann Marie Barahona Procedure Date: 06/26/2019 8:57 AM Date of : 1960 Age: 58 Procedure: Upper GI endoscopy Indications: Epigastric abdominal pain, Heartburn Providers: Rohini Garcia MD Referring MD: Rohini Garcia MD Medicines: Monitored Anesthesia Care Patient Profile: This is a 58 year old female. Complications: No immediate complications. Procedure: Pre-Anesthesia Assessment: - Prior to the procedure, a History and Physical was performed, and patient medications and allergies were reviewed. The patient's tolerance of previous anesthesia was also reviewed. The risks and benefits of the procedure and the sedation options and risks were discussed with the patient. All questions were answered, and informed consent was obtained. Prior Anticoagulants: The patient has taken no previous anticoagulant or antiplatelet agents. ASA Grade Assessment: Per anesthesia. After reviewing the risks and benefits, the patient was deemed in satisfactory condition to undergo the procedure. After obtaining informed consent, the endoscope was passed under direct vision. Throughout the procedure, the patient's blood pressure, pulse, and oxygen saturations were monitored continuously. The gastroscope was introduced through the mouth, and advanced to the second part of duodenum. The upper GI endoscopy was accomplished without difficulty. The upper GI endoscopy was somewhat difficult due to presence of food. The patient tolerated the procedure well. Scope In: 9:08:45 AM Scope Out: 9:13:43 AM Total Procedure Duration Time 0 hours 4 minutes 58 seconds Findings: The Z-line was variable and was found 40 cm from the incisors. Biopsies were taken with a cold forceps for histology. A medium amount of a phytobezoar was found in the gastric body. Mildly erythematous mucosa without bleeding was found in the gastric antrum. Biopsies were taken with a cold forceps for histology. Biopsies were taken with a cold forceps for Helicobacter pylori cultures. No gross lesions were noted in the duodenal bulb, in the first portion of the duodenum and in the second portion of the duodenum. Biopsies for histology were taken with a cold forceps for evaluation of celiac disease. The cardia and gastric fundus were normal on retroflexion. Impression: - Z-line variable, 40 cm from the incisors. Biopsied. - A medium amount of a phytobezoar in the stomach. - Erythematous mucosa in the antrum. Biopsied. - No gross lesions in the duodenal bulb, in the first portion of the duodenum and in the second portion of the duodenum. Biopsied. Recommendation: - Await pathology results. - Discharge patient to home. - Gastroparesis diet. - Continue present medications. - Use Protonix (pantoprazole) 40 mg PO daily. Procedure Code(s): --- Professional --- 71588, Esophagogastroduodenoscopy, flexible, transoral; with biopsy, single or multiple Diagnosis Code(s): --- Professional --- K22.8, Other specified diseases of esophagus T18.2XXA, Foreign body in stomach, initial encounter K31.89, Other diseases of stomach and duodenum R10.13, Epigastric pain R12, Heartburn CPT copyright 2017 [employer]. All rights reserved. The codes documented in this report are preliminary and upon bank courier review may be revised to meet current compliance requirements. MD Rohini Horton MD 06/26/2019 9:21:26 AM This report has been signed electronically. Number of Addenda: 0 Note Initiated On: 06/26/2019 8:57 AM
== END 2019-06-26 10:03 | disposition home or self-care (01) ==
LOC: EN 08:20 → AC 08:20
PROVIDERS: Referring Provider Surgery; Visit Provider Surgery
PROC: 0DJ08ZZ Inspection of Upper Intestinal Tract, Via Natural or Artificial Opening Endoscopic (ICD-10-PCS; CPT 43235; principal; 2019-06-26 08:55)
DX: K22.8 Other specified diseases of esophagus (principal); K31.89 Other diseases of stomach and duodenum; R12 Heartburn; J44.9 Chronic obstructive pulmonary disease, unspecified; K21.9 Gastro-esophageal reflux disease without esophagitis; F17.210 Nicotine dependence, cigarettes, uncomplicated; E73.9 Lactose intolerance, unspecified; M19.90 Unspecified osteoarthritis, unspecified site; F43.10 Post-traumatic stress disorder, unspecified; F42.9 Obsessive-compulsive disorder, unspecified; F32.9 Major depressive disorder, single episode, unspecified; F41.9 Anxiety disorder, unspecified; Z11.59 Encounter for screening for other viral diseases
CPT/HCPCS: 43239; 87635; 88305; 88313; 88342; G2023; J7120; J2405; U0002

== ENCOUNTER → 2019-07-10 12:16 | Outpatient (CLI) | payer MEDICARE, SELFPAY ==
[2019-06-26 08:36] VITALS: BMI 25.1
--- NOTE | 2019-07-10 12:17 | NM_ITS ---
CLINICAL: 58-year-old female with reported history of abdominal bloating and nausea. SEMI-SOLID PHASE 99m Tc SULFUR COLLOID GASTRIC EMPTYING STUDY COMPARISON: CT of the abdomen-pelvis report 04/29/2019 FINDINGS: The patient was administered 1.0 mCi of 99m Tc sulfur colloid mixed with oatmeal and consumed per os. Image acquisitions in the anterior-posterior projections for a total of 60 minutes. There is prompt visualization of the stomach. There is no gastroesophageal reflux identified. The T1/2 linear fit was calculated to be 28.05 minutes, (Normal: 12-56 minutes). NM/Gastric Emptying Study IMPRESSION: 1. NORMAL 99m Tc sulfur colloid semi-solid phase (oatmeal) gastric emptying imaging examination. A. There is normal and preserved semi-solid phase gastric emptying compared to normal controls with maintained first order kinetics throughout all components of the examination. (Brie et al, J Nucl Med Tech 38: 186, 2010). Electronically Signed: Cristian Ramos DO at 22:35 EDT Tel , Service support ,
== END ==
PROVIDERS: Referring Provider Surgery; Visit Provider Surgery
DX: R10.9 Unspecified abdominal pain (principal); R68.81 Early satiety
CPT/HCPCS: 78264; A9541